=== PATIENT | female | born 1970 | race Native Hawaiian/Other Pacific Islander ===

== ENCOUNTER 2016-04-24 09:10 | Day surgery (SDC) | payer OTHER ==
[2016-04-23 12:48] VITALS: BMI 23.8
[2016-04-24] MEDS ORDERED: ceFAZolin IV 1 gm in Dextrose 0 ML IVPB ONE (10:56)
[2016-04-24] MEDS ORDERED: ceFAZolin IV 2 gm in Dextrose 0 ML IVPB ONE (10:56)
[2016-04-24] MEDS ORDERED: Lactated Ringer's 1,000 ML IV ONE ×3 (11:03→14:20)
[2016-04-24] MEDS ORDERED: Midazolam 2 MG/2 ML VIAL ONE (11:05)
[2016-04-24] MEDS ORDERED: Propofol 10 mg/ml Inj (20 ML) ONE (11:05)
[2016-04-24] MEDS: Silver Nitrate Topical - Stick ONE ×2 (12:50→13:04)
[2016-04-24] MEDS: HYDROmorphone 0.5 mg/0.5 ml ISec IVP PRN ×4 (13:32→14:34)
[2016-04-24 14:12] VITALS: O2SAT 100
[2016-04-24 17:05] VITALS: BP 115/76; PULSE 77; RESP 18; TEMP 97.3
--- NOTE | 2016-04-24 21:32 | PCM.SURG1 ---
Surgeon's Initial Post Op Note - Surgeon's Notes Surgeon: Olivia Callahan MD Rock Climbing Instructor: none Type of Anesthesia: General LMA Pre-Operative Diagnosis: Submucosal myoma, abnormal uterine bleeding Operative Findings: Enlarged 12 week size uteurs, multiple submucosal myomas protruding more than 50% into cavity Stage 2, bileateral ostia visulaed, 2 enlarged myomas protruding into cavity, 4.5 cm myoma into cavity near fundus approximately 70% reduced, removed via myosure device, ambulatory services representative present for entrie case. Fluid deficit 2400cc Post-Operative Diagnosis: Multiple Submucosal myomas, abnormal uterien bleeding Operation Performed: Hysteroscopic myomectomy, dilation and currettage Specimen/Specimens Removed: Endocervial currettings, endoemtrial currettings with submucosal myomas Estimated Blood Loss: EBL {In ML}: 50 Blood Products Given: N/A Drains Used: No Drains Date of Surgery/Procedure: 04/24/16 Time of Surgery/Procedure: 11:00
--- NOTE | 2016-04-25 05:47 | OP ---
PROCEDURE DATE: 04/24/2016 SURGEON: Dr. Olivia Callahan DIGITAL MARKETING EXECUTIVE: None. TYPE OF ANESTHESIA: General endotracheal. PREOPERATIVE DIAGNOSES: Submucosal myoma, abnormal uterine bleeding. POSTOPERATIVE DIAGNOSIS: Multiple submucosal myomas, abnormal uterine bleeding with 1 myoma unable t o remove in entirety. OPERATIVE FINDINGS: Enlarged 12-week size uterus, multiple submucosal myomas protruding more than 50 % intracavitary, stage II, bilateral ostia visualized, 2 enlarged myomas protruding into the cavity o ff the fundus wall, 4-5 cm myoma into the cavity near the fundus approximately 70% reduced, removed v ia MyoSure device, applications sales representative present for the entire case due to fluid deficit of 2400 mL. Proce dure was aborted. OPERATION PERFORMED: Hysteroscopic myomectomy, dilation and curettage. SPECIMEN REMOVED: Endocervical curettings, endometrial curettings and submucosal myomas. ESTIMATED BLOOD LOSS: 50 mL BLOOD PRODUCTS: None. COMPLICATIONS: None. DESCRIPTION OF PROCEDURE: The patient taken to the operating room where she was given general anesth esia. Once found to be adequate, she was placed on the operative table in dorsal supine position wit h legs supported using stirrups. The patient was then prepped and draped in the usual normal sterile fashion. Timeout was performed to confirm the correct patient and correct procedure. A red rubber catheter was then inserted into the urethra to drain the bladder and approximately 50 mL of clear yel low urine was obtained. A bimanual exam was performed with above-mentioned findings. A Lsia retract or was placed in the anterior, posterior fornix of the vagina, the cervix was adequately visualized. A single tooth tenaculum was placed on the anterior lip of the cervix and endocervical curettings we re obtained with a Sepideh curet and sent to pathology on [facility]. The uterus was then sounded to 8 cm and the cervix was sequentially dilated to allow for introduction of the hysteroscope under direct visualization using normal saline as the distending media. Upon entering visualization of bilateral ostia, there were multiple submucosal myomas noted within the cavity width, more than 50% of it prot ruding and essentially occluding the entire cavity. There was minimal space noted to navigate throug h. The MyoSure device was then inserted and activated and after successful priming of the machine, t he MyoSure device was then carefully activated to help allow for adequate dissection of each of the m ultiple myomas 5+ noted. Attention was then turned, noted to the fundus in which were 2 large myomas , one was removed in entirety that was approximately 2 cm and another additional one that was 4-5 cm was removed; however, due to concern for fluid deficit closely proceeding to the limit. The procedur e was then aborted. A gentle curettage was done and sent to pathology on [facility]. There was good kris familia of the specimen. However, there was one noted along the posterior aspect, which were concerns of the fluid deficit and also for a bleeding, which after hemostasis was noted to be adequate. Followi ng this, the single tooth tenaculum was removed and there was slight oozing noted at the tenaculum pu ncture site. Pressure was applied for 5 minutes. Following this, pressure was reapplied and there w as still bleeding noted from the site. A 2-0 chromic stitch was then applied and there was good hemo stasis in the anterior lip of the cervix, the posterior lip of the cervix appeared friable was also o ozing and pressure was applied. It was not hemostasis, the pressure was then reapplied again. Follo wing this, a cautery ball was then inserted to help cauterize the area good hemostasis noted. There was oozing noted from the uterine and the cervical os which was noted to be coming from the mario jennifer. Pressure was then applied; however, following this, a pediatric Armenta was then inserted to help with hemostasis. All instruments were removed from the patient and there was good hemostasis noted. The patient was then transferred to the recovery room in which she was reevaluated and examined. 1 hour later, there was good hemostasis noted and the pediatric Armenta was then removed from the uterus . There was good hemostasis noted. The patient was given strict bleeding concern and precautions an d notified to contact MD and go to the Emergency Room if needed. At the end of the procedure, all ne edle, sponge and instrument counts were noted to be correct x 2. The patient tolerated the procedure well and was transferred to recovery room in stable condition. Olivia Callahan MD cc: [id number] TT: 04/25/2016 05:46:53 tn
== END 2016-04-24 19:45 | disposition home or self-care (01) ==
LOC: C.SDS 09:10
PROVIDERS: ATTEND Obstetrics & Gynecology
DX: D25.0 Submucous leiomyoma of uterus (principal); N93.9 Abnormal uterine and vaginal bleeding, unspecified